=== PATIENT | male | born 1970 | race Caucasian/White ===

== ENCOUNTER 2020-02-14 19:39 | Observation (INO) | payer SELFPAY ==
[2020-02-14] MEDS ORDERED: EPINEPHrine 1 MG/ML SDV ONE (19:43)
[2020-02-14] MEDS ORDERED: diphenhydrAMINE 50 MG/ML SDV ONE (19:44)
[2020-02-14] MEDS ORDERED: Dexamethasone 10 MG/ML SDV ONE (19:45)
[2020-02-14] MEDS ORDERED: Sodium Chloride 0.9% 10 ML Syringe FLUSH PRN (19:46)
[2020-02-14] MEDS ORDERED: Sodium Chloride 0.9% 2.5 ML Syringe FLUSH PRN (19:46)
[2020-02-14] MEDS ORDERED: Dexamethasone 10 MG/ML SDV IVPUSH ONE (19:47)
[2020-02-14] MEDS ORDERED: diphenhydrAMINE 50 MG/ML SDV IVPUSH ONE (19:47)
[2020-02-14] MEDS ORDERED: LORazepam 2 MG/ML SDV IVPUSH ONE (19:57)
--- NOTE | 2020-02-14 20:02 | EDM.PDOC ---
ED HPI GENERAL MEDICAL PROBLEM - General Chief Complaint: Allergic Reaction Stated Complaint: SHORTNESS OF BREATH/VOMITTING BLOOD Time Seen by Provider: 02/14/20 19:46 - History of Present Illness INITIAL COMMENTS - FREE TEXT/NARRATIVE: History of present illness: [] The patient presented in extreme shortness of breath with difficulty speaking and the inhaling. He was using accessory muscles and pulling with a prolonged inspiratory time. There is no actual stridor. There was a very muffled and soft voice he said having an allergic reaction. He has had serious allergy to peanuts and in the past he has had to be intubated. He feels like his throat is closing. He does not know what he was exposed to but he started coughing 2 hours ago. Review of systems: As per history of present illness and below otherwise all systems reviewed and negative. Past medical history: As per history of present illness and as reviewed below otherwise noncontributory. He has significant PTSD. Surgical history: As per history of present illness and as reviewed below otherwise noncontributory. Social history: No reported history of drug or alcohol abuse. Family history: As per history of present illness and as reviewed below otherwise noncontributory. Physical exam: Constitutional - well developed, well-nourished and in acute distress HEENT - normocephalic, no evidence of trauma - external nose and mouth normal - no mass in neck and no JVD - mucosae moist -full soft voice and points to his throat and says it swelling. Soft palate and pharynx are extremely hyperemic and injected. EYES - full EOM, PERRL, no icterus - no evidence of inflammation, injection, or drainage Respiratory - respiratory distress, equal bilateral expansion, lungs diminished to auscultation Cardiovascular - Regular Rhythm with S1 and S2 appreciated and no murmur, gallop or rub. Peripheral pulses symmetrically normal in all four extremities GI - abdomen soft without distension or organomegaly - normal bowel sounds - no guard or rebound Musculoskeletal no gross deformity of long bones or joints - no tenderness, swelling or edema Neurologic - Alert and oriented times four - CN II-XII grossly intact - motor sensory and coordination symmetrically normal Psychiatric - appropriate mood and affect with normal thought content Hematologic - No petechiae or purpura - mucosa appropriate color and sclera not pale - normal nail bed color and refill Integument - no rash or evidence of trauma - normal turgor Diagnostics: [] Patient appears to have anaphylaxis. He is given epinephrine injection and I assembled a team and equipment to prepare to intubate him. We started an IV and gave Benadryl and Decadron. He began to talk. He began to breathe more easily. Therapeutics: The above [] Impression: Anaphylaxis [] Plan: [] Definitive disposition and diagnosis as appropriate pending reevaluation and review of above. - Related Data Allergies Allergy/AdvReac Type Severity Reaction Status Date / Time peanut Allergy Rash Verified 02/14/20 19:59 Home Meds: Home Meds . [No Known Home Meds] 02/14/20 [History] ED ROS ALLERGIC REACTION - Review of Systems Review Of Systems: Comprehensive ROS is negative, except as noted in HPI. ED EXAM GENERAL NO PERIP PULSE - Physical Exam Exam: See Below Text/Narrative:: Physical exam is in my HPI EKG INTERPRETATION EKG Date: 02/14/20 Rhythm: Other (Sinus tachycardia) Rate (Beats/Min): 112 P-Wave: Present QRS: Other (Late transition to R wave in the precordium) ST-T: Normal Comparison: NA - No Prior EKG EKG Interpretation Comments: Impression is no acute injury. 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 Course - Vital Signs Text/Narrative:: 2015 the patient is markedly improved. He is able to talk. He is comfortable. He did not need to be intubated. He does need to be watched in case there is a biphasic response any rebounds after the adrenaline wears off. Patient remembers that he used his EpiPen in a prior attack and therefore he did not have one today. 2034 the patient continues to breathe well. His throat is very sore. He reiterates that he was feeling okay until 2 hours prior to arrival. He started with a cough. Then he began the cough that up some blood. Throat is sore since. But it began to close up just before arrival. To speak well and breathes well now. He is never had a decreased oxygen saturation or low blood pressure. X-ray shows no discrete infiltrate or abnormality. Heart shadow is normal size. 2123 the patient remains stable with a good voice and good air exchange. Discussed with graciously agreed to watch the patient in observation status overnight. Patient placed on a telemetry unit. Total time involved in patient care including review of records, taking history, examining patient, doing charting, consulting physician, and counseling patient that is not billable elsewhere is a procedure 32 minutes critical care time Last Recorded V/S: Last Vital Signs Temp 96.6 F L 02/14/20 19:40 Pulse 118 H 02/14/20 19:40 Resp 25 H 02/14/20 19:40 BP 133/89 02/14/20 19:40 Pulse Ox 96 02/14/20 19:40 - Orders/Labs/Meds Orders: Active Orders 24 hr Category Date Time Status Admission Status [Patient Status] [ADT] Stat ADT 02/14/20 21:22 Ordered EKG Documentation Completion [RC] AM Care 02/14/20 19:46 Active RT Aerosol Therapy [RC] ASDIRECTED Care 02/14/20 20:19 Active Sodium Chloride 0.9% [Normal Saline] 1,000 ml Med 02/14/20 20:45 Active IV ASDIRECTED Sodium Chloride 0.9% [Saline Flush] Med 02/14/20 19:46 Active 10 ml FLUSH ASDIRECTED PRN Sodium Chloride 0.9% [Saline Flush] Med 02/14/20 19:46 Active 2.5 ml FLUSH ASDIRECTED PRN Saline Lock Insert [OM.PC] Stat Oth 02/14/20 19:46 Ordered Medication Orders Sodium Chloride (Normal Saline) 1,000 mls @ 999 mls/hr IV ASDIRECTED GALLITO Last Admin: 02/14/20 20:44 Dose: 999 mls/hr Documented by: KAELA Sodium Chloride (Saline Flush) 10 ml FLUSH ASDIRECTED PRN PRN Reason: Keep Vein Open Sodium Chloride (Saline Flush) 2.5 ml FLUSH ASDIRECTED PRN PRN Reason: Keep Vein Open Labs: Laboratory Tests 02/14/20 02/14/20 Range/Units 19:45 19:45 WBC 7.09 (4.0-11.0) K/uL RBC 5.12 (4.50-5.90) M/uL Hgb 16.8 (13.0-17.0) g/dL Hct 48.1 (38.0-50.0) % MCV 93.9 (80.0-98.0) fL MCH 32.8 H (27.0-32.0) pg MCHC 34.9 (31.0-37.0) g/dL RDW Std Deviation 44.7 (28.0-62.0) fl RDW Coeff of Roman 13 (11.0-15.0) % Plt Count 147 L (150-400) K/uL MPV 10.90 (7.40-12.00) fL Neut % (Auto) 51.5 (48.0-80.0) % Lymph % (Auto) 37.4 (16.0-40.0) % Traill % (Auto) 8.9 (0.0-15.0) % Eos % (Auto) 1.6 (0.0-7.0) % Baso % (Auto) 0.6 (0.0-1.5) % Neut # (Auto) 3.7 (1.4-5.7) K/uL Lymph # (Auto) 2.7 H (0.6-2.4) K/uL Traill # (Auto) 0.6 (0.0-0.8) K/uL Eos # (Auto) 0.1 (0.0-0.7) K/uL Baso # (Auto) 0.0 (0.0-0.1) K/uL Nucleated RBC % 0.0 /100WBC Nucleated RBCs # 0 K/uL Sodium 136 (136-148) mmol/L Potassium 3.8 (3.5-5.1) mmol/L Chloride 95 L (98-107) mmol/L Carbon Dioxide 21.8 (21.0-32.0) mmol/L BUN 8 (7.0-18.0) mg/dL Creatinine 1.0 (0.8-1.3) mg/dL Est Cr Clr Drug Dosing 85.05 mL/min Estimated GFR (MDRD) > 60.0 ml/min Glucose 111 H (74-106) mg/dL Calcium 9.4 (8.5-10.1) mg/dL Total Bilirubin 0.7 (0.2-1.0) mg/dL AST 159 H (15-37) IU/L ALT 267 H (14-63) IU/L Alkaline Phosphatase 66 (46-116) U/L Total Protein 8.3 H (6.4-8.2) g/dL Albumin 4.5 (3.4-5.0) g/dL Globulin 3.8 (2.6-4.0) g/dL Albumin/Globulin Ratio 1.2 (0.9-1.6) Meds: Medications Generic Name Dose Route Start Last Admin Trade Name Kevynq PRN Reason Stop Dose Admin Sodium Chloride 1,000 mls @ 999 mls/hr 02/14/20 20:45 02/14/20 20:44 Normal Saline IV 999 mls/hr ASDIRECTED GALLITO Administration Sodium Chloride 10 ml 02/14/20 19:46 Saline Flush FLUSH ASDIRECTED PRN Keep Vein Open Sodium Chloride 2.5 ml 02/14/20 19:46 Saline Flush FLUSH ASDIRECTED PRN Keep Vein Open Discontinued Medications Generic Name Dose Route Start Last Admin Trade Name Pat PRN Reason Stop Dose Admin Albuterol/Ipratropium Confirm 02/14/20 20:10 02/14/20 20:48 Duoneb 3.0-0.5 Mg/3 Ml Administered 02/14/20 20:11 Not Given Dose 3 ml .ROUTE .STK-MED ONE Albuterol/Ipratropium 3 ml 02/14/20 20:19 02/14/20 20:22 Duoneb 3.0-0.5 Mg/3 Ml NEB 02/14/20 20:20 3 ml ONETIME ONE Administration Benzocaine 2 each 02/14/20 21:11 02/14/20 21:16 Hurricaine One 20% MUCMEM 02/14/20 21:12 2 each ONETIME ONE Administration Benzocaine Confirm 02/14/20 21:12 02/14/20 21:17 Hurricaine One 20% Administered 02/14/20 21:13 Not Given Dose 2 each MUCMEM .STK-MED ONE Benzocaine 1 each 02/14/20 21:16 Hurricaine One 20% MUCMEM 02/14/20 21:17 ONETIME ONE Dexamethasone Confirm 02/14/20 19:45 02/14/20 20:49 Dexamethasone Administered 02/14/20 19:46 Not Given Dose 10 mg .ROUTE .STK-MED ONE Dexamethasone 10 mg 02/14/20 19:47 02/14/20 20:21 Dexamethasone IVPUSH 02/14/20 19:48 10 mg ONETIME ONE Administration Diphenhydramine HCl Confirm 02/14/20 19:44 02/14/20 20:49 Benadryl Administered 02/14/20 19:45 Not Given Dose 50 mg .ROUTE .STK-MED ONE Diphenhydramine HCl 50 mg 02/14/20 19:47 02/14/20 20:21 Benadryl IVPUSH 02/14/20 19:48 50 mg ONETIME ONE Administration Epinephrine HCl Confirm 02/14/20 19:43 02/14/20 20:55 Adrenalin Administered 02/14/20 19:44 Not Given Dose 1 mg .ROUTE .STK-MED ONE Epinephrine HCl 0.3 mg 02/14/20 20:49 02/14/20 20:51 Adrenalin SUBCUT 02/14/20 20:50 0.3 mg ONETIME ONE Administration Famotidine 20 mg 02/14/20 20:19 02/14/20 20:24 Pepcid IVPUSH 02/14/20 20:20 20 mg ONETIME ONE Administration Lorazepam 1 mg 02/14/20 19:57 02/14/20 20:21 Ativan IVPUSH 02/14/20 19:58 1 mg ONETIME ONE Administration Departure - Departure Time of Disposition: 21:24 Disposition: Refer to Observation Clinical Impression: Anaphylaxis - Discharge Information Referrals: PCP,None [Primary Care Provider] - Sepsis Event Note (ED) - Focused Exam Vital Signs: Vital Signs Temp Pulse Resp BP Pulse Ox 02/14/20 19:40 96.6 F L 118 H 25 H 133/89 96 - My Orders Last 24 Hours: My Active Orders 02/14/20 19:46 EKG Documentation Completion [RC] AM Sodium Chloride 0.9% [Saline Flush] 10 ml FLUSH ASDIRECTED PRN Sodium Chloride 0.9% [Saline Flush] 2.5 ml FLUSH ASDIRECTED PRN Saline Lock Insert [OM.PC] Stat 02/14/20 20:19 RT Aerosol Therapy [RC] ASDIRECTED 02/14/20 20:45 Sodium Chloride 0.9% [Normal Saline] 1,000 ml IV ASDIRECTED 02/14/20 21:22 Admission Status [Patient Status] [ADT] Stat - Assessment/Plan Last 24 Hours: My Active Orders 02/14/20 19:46 EKG Documentation Completion [RC] AM Sodium Chloride 0.9% [Saline Flush] 10 ml FLUSH ASDIRECTED PRN Sodium Chloride 0.9% [Saline Flush] 2.5 ml FLUSH ASDIRECTED PRN Saline Lock Insert [OM.PC] Stat 02/14/20 20:19 RT Aerosol Therapy [RC] ASDIRECTED 02/14/20 20:45 Sodium Chloride 0.9% [Normal Saline] 1,000 ml IV ASDIRECTED 02/14/20 21:22 Admission Status [Patient Status] [ADT] Stat
[2020-02-14] MEDS ORDERED: Albuterol/Ipratropium 3.0-0.5 MG/3 ML Neb Soln ONE (20:10)
[2020-02-14] MEDS ORDERED: Albuterol/Ipratropium 3.0-0.5 MG/3 ML Neb Soln NEB ONE (20:19)
[2020-02-14] MEDS ORDERED: Famotidine 20 MG/2 ML SDV IVPUSH ONE (20:19)
[2020-02-14] MEDS ORDERED: Sodium Chloride 0.9% 1,000 ML IV SCH ×2 (20:45→21:45)
[2020-02-14] MEDS ORDERED: EPINEPHrine 1 MG/ML SDV SUBCUT ONE (20:49)
--- NOTE | 2020-02-14 20:50 | CR ---
Chest: Portable view of the chest was obtained. Comparison: No previous chest imaging is available. Heart size and mediastinum are within normal limits for AP technique. Lung markings are slightly increased on the left side. Difficult to exclude mild bronchitis. Lungs otherwise are clear bony structures are grossly intact. Impression: 1. Questionable left-sided mild bronchitis. 2. Nothing acute is otherwise seen on portable chest x-ray. Diagnostic code #3 This report was dictated in MDT
[2020-02-14 20:52] LABS: BLOOD UREA NITROGEN,BUN 8 mg/dL (7.0-18.0); CARBON DIOXIDE,CO2 21.8 mmol/L (21.0-32.0); CHLORIDE,CL 95 mmol/L (98-107); GLUCOSE RANDOM 111 mg/dL (74-106); POTASSIUM,K 3.8 mmol/L (3.5-5.1); SODIUM,NA 136 mmol/L (136-148)
[2020-02-14] MEDS ORDERED: Benzocaine 20% Topical Spray UD MUCMEM ONE ×3 (21:11→21:16)
[2020-02-14] MEDS ORDERED: Albuterol/Ipratropium 3.0-0.5 MG/3 ML Neb Soln NEB PRN (21:52)
[2020-02-14] MEDS ORDERED: diphenhydrAMINE 50 MG/ML SDV IVPUSH PRN (21:57)
--- NOTE | 2020-02-14 22:11 | PCM.HP.2 ---
H&P History of Present Illness - General Date of Service: 02/14/20 Admit Problem/Dx: Admission Diagnosis/Problem Admission Diagnosis/Problem Anaphylaxis - History of Present Illness Initial Comments - Free Text/Narative: Patient with PMH of PTSD presented in extreme shortness of breath with difficulty speaking, cough. Stated that his symptoms started 2 hours ago with severe coughing spell that resulted in some blood tinged sputum. Once he got to the ER his breathing became worse, he was using accessory muscle, no actual stridor was audible but patient had a very muffled and soft voice, felt like his throat was closing. He sttaed he feel like he is having an allergic reaction. He has had serious allergy to peanuts and in the past he has had to be intubated. He had food at a [employer] restaurant and symptoms stated shortly after that. Patients blood work was reassuring. Patients received IV Benadryl, fam otidine and steroids which helped his symptoms snd was admitted to breath better , more comfortably but had sore throat due to violent coughing. Patient was admitted for further care. Throat Pain Score (Numeric/FACES): 8 - Related Data Allergies/Adverse Reactions: Allergies Allergy/AdvReac Type Severity Reaction Status Date / Time peanut Allergy Rash Verified 02/15/20 02:29 Home Medications: Home Meds . [No Known Home Meds] 02/14/20 [History] Past Medical History Cardiovascular History: Reports: None Psychiatric History: Reports: Anxiety, PTSD - Past Surgical History Cardiovascular Surgical History: Reports: Other (See Below) Other Cardiovascular Surgeries/Procedures: cardiac ablation Social & Family History - Family History Family Medical History: Noncontributory - Tobacco Use Smoking Status *Q: Current Every Day Smoker Years of Tobacco use: 25 Packs/Tins Daily: 0.5 - Caffeine Use Caffeine Use: Reports: None - Recreational Drug Use Recreational Drug Use: No H&P Review of Systems - Review of Systems: Review Of Systems: See Below General: Reports: Weakness. Denies: Fever, Chills, Malaise HEENT: Denies: Contact Lenses, Ear Pain, Eye Pain Pulmonary: Reports: Cough. Denies: Shortness of Breath, Wheezing Cardiovascular: Reports: Dyspnea on Exertion. Denies: Chest Pain, Palpitations, Orthopnea, PND Gastrointestinal: Reports: Difficulty Swallowing, Flatus. Denies: Abdominal Pain, Anorexia, Distension, Hematemesis, Hematochezia, Mucous in Stool Genitourinary: Denies: Frequency, Burning, Pain Musculoskeletal: Denies: Shoulder Pain, Arm Pain, Back Pain Exam - Exam Exam: See Below - Vital Signs Vital Signs: Last Vital Signs Temp 35.9 C L 02/14/20 19:40 Pulse 120 H 02/14/20 21:15 Resp 20 02/14/20 21:15 BP 132/94 H 02/14/20 21:15 Pulse Ox 98 02/14/20 21:15 Weight: 68.039 kg - Exam Quality Assessment: Supplemental Oxygen General: Alert, Oriented, Mild Distress (anxious) Neck: Supple, Trachea Midline Lungs: Clear to Auscultation, Normal Respiratory Effort Cardiovascular: Regular Rate, Regular Rhythm, Normal S1, Normal S2 - Patient Data Lab Results Last 24 hrs: Laboratory Results - last 24 hr 02/14/20 02/14/20 02/14/20 Range/Units 19:45 19:45 21:38 WBC 7.09 (4.0-11.0) K/uL RBC 5.12 (4.50-5.90) M/uL Hgb 16.8 (13.0-17.0) g/dL Hct 48.1 (38.0-50.0) % MCV 93.9 (80.0-98.0) fL MCH 32.8 H (27.0-32.0) pg MCHC 34.9 (31.0-37.0) g/dL RDW Std Deviation 44.7 (28.0-62.0) fl RDW Coeff of Roman 13 (11.0-15.0) % Plt Count 147 L (150-400) K/uL MPV 10.90 (7.40-12.00) fL Neut % (Auto) 51.5 (48.0-80.0) % Lymph % (Auto) 37.4 (16.0-40.0) % Williamson % (Auto) 8.9 (0.0-15.0) % Eos % (Auto) 1.6 (0.0-7.0) % Baso % (Auto) 0.6 (0.0-1.5) % Neut # (Auto) 3.7 (1.4-5.7) K/uL Lymph # (Auto) 2.7 H (0.6-2.4) K/uL Williamson # (Auto) 0.6 (0.0-0.8) K/uL Eos # (Auto) 0.1 (0.0-0.7) K/uL Baso # (Auto) 0.0 (0.0-0.1) K/uL Nucleated RBC % 0.0 /100WBC Nucleated RBCs # 0 K/uL Sodium 136 (136-148) mmol/L Potassium 3.8 (3.5-5.1) mmol/L Chloride 95 L (98-107) mmol/L Carbon Dioxide 21.8 (21.0-32.0) mmol/L BUN 8 (7.0-18.0) mg/dL Creatinine 1.0 (0.8-1.3) mg/dL Est Cr Clr Drug Dosing 85.05 mL/min Estimated GFR (MDRD) > 60.0 ml/min Glucose 111 H (74-106) mg/dL Calcium 9.4 (8.5-10.1) mg/dL Total Bilirubin 0.7 (0.2-1.0) mg/dL AST 159 H (15-37) IU/L ALT 267 H (14-63) IU/L Alkaline Phosphatase 66 (46-116) U/L Total Protein 8.3 H (6.4-8.2) g/dL Albumin 4.5 (3.4-5.0) g/dL Globulin 3.8 (2.6-4.0) g/dL Albumin/Globulin Ratio 1.2 (0.9-1.6) COVID-19 (ARSEN) NEGATIVE (NEGATIVE) Result Diagrams: 02/15/20 06:20 02/15/20 06:20 Sepsis Event Note - Evaluation Sepsis Screening Result: No Definite Risk - Focused Exam Vital Signs: Vital Signs Temp Pulse Resp BP Pulse Ox 02/14/20 21:15 120 H 20 132/94 H 98 02/14/20 20:45 118 H 20 133/85 98 02/14/20 20:15 104 H 22 H 131/90 100 02/14/20 19:40 35.9 C L 118 H 25 H 133/89 96 Date Exam was Performed: 02/15/20 Time Exam was Performed: 07:53 - Problem List (1) PTSD (post-traumatic stress disorder) SNOMED Code(s): 78935074 ICD Code: F43.10 - POST-TRAUMATIC STRESS DISORDER, UNSPECIFIED Status: Acute Current Visit: Yes (2) Anxiety SNOMED Code(s): 59849858 ICD Code: F41.9 - ANXIETY DISORDER, UNSPECIFIED Status: Acute Current Visit: Yes (3) Anaphylaxis SNOMED Code(s): 57445549 ICD Code: T78.2XXA - ANAPHYLACTIC SHOCK, UNSPECIFIED, INITIAL ENCOUNTER Status: Acute Current Visit: Yes Problem List Initiated/Reviewed/Updated: Yes Orders Last 24hrs: Active Orders 24 hr Category Date Time Status Admission Status [Patient Status] [ADT] Stat ADT 02/14/20 21:22 Active Ambulate [RC] ASDIRECTED Care 02/14/20 21:52 Active Antiembolic Devices [RC] PER UNIT ROUTINE Care 02/14/20 21:57 Active EKG Documentation Completion [RC] AM Care 02/14/20 19:46 Active Oxygen Therapy [RC] PRN Care 02/14/20 21:52 Active Pulse Oximetry [RC] PRN Care 02/14/20 21:54 Active RT Aerosol Therapy [RC] ASDIRECTED Care 02/14/20 20:19 Active RT Aerosol Therapy [RC] ASDIRECTED Care 02/14/20 21:57 Active VTE/DVT Education [RC] PER UNIT ROUTINE Care 02/14/20 21:52 Active Vital Signs [RC] Q4H Care 02/14/20 21:52 Active Full Liquid Diet [DIET] Diet 02/14/20 Dinner Active Albuterol/Ipratropium [DuoNeb 3.0-0.5 MG/3 ML] Med 02/14/20 21:52 Active 3 ml NEB Q4HRRT PRN Lactated Ringers [Ringers, Lactated] 1,000 ml Med 02/14/20 22:00 Active IV ASDIRECTED Sodium Chloride 0.9% [Normal Saline] 1,000 ml Med 02/14/20 20:45 Active IV ASDIRECTED Sodium Chloride 0.9% [Normal Saline] 1,000 ml Med 02/14/20 21:45 Active IV ASDIRECTED Sodium Chloride 0.9% [Saline Flush] Med 02/14/20 19:46 Active 10 ml FLUSH ASDIRECTED PRN Sodium Chloride 0.9% [Saline Flush] Med 02/14/20 19:46 Active 2.5 ml FLUSH ASDIRECTED PRN diphenhydrAMINE [Benadryl] Med 02/14/20 21:57 Active 25 mg IVPUSH Q6H PRN methylPREDNISolone Sod Succ [Solu-MEDROL] Med 02/14/20 22:15 Active 40 mg IVPUSH Q12H Saline Lock Insert [OM.PC] Stat Oth 02/14/20 19:46 Ordered Sequential Compression Device [OM.PC] Per Unit Routine Oth 02/14/20 21:54 Ordered Resuscitation Status Routine Resus Stat 02/14/20 21:52 Ordered Medication Orders Albuterol/Ipratropium (Duoneb 3.0-0.5 Mg/3 Ml) 3 ml NEB Q4HRRT PRN PRN Reason: Shortness Of Breath/wheezing Diphenhydramine HCl (Benadryl) 25 mg IVPUSH Q6H PRN PRN Reason: Hives Sodium Chloride (Normal Saline) 1,000 mls @ 999 mls/hr IV ASDIRECTED [facility] Last Admin: 02/14/20 20:44 Dose: 999 mls/hr Documented by: ARANANG Sodium Chloride (Normal Saline) 1,000 mls @ 999 mls/hr IV ASDIRECTED [facility] Lactated Ringer's (Ringers, Lactated) 1,000 mls @ 125 mls/hr IV ASDIRECTED GALLITO Methylprednisolone Sodium Succinate (Solu-Medrol) 40 mg IVPUSH Q12H GALLITO Sodium Chloride (Saline Flush) 10 ml FLUSH ASDIRECTED PRN PRN Reason: Keep Vein Open Sodium Chloride (Saline Flush) 2.5 ml FLUSH ASDIRECTED PRN PRN Reason: Keep Vein Open Assessment/Plan Comment:: 49 y/o M admitted for possible anaphylaxis reaction Will admit to observation overnight cont telemetry oxygen via NC to maintain pulse oxy >92 IV fluids for hydration IV steroids IV Benadryl as needed Toradol for pain Abnormal Lfts, recheck in AM
[2020-02-14] MEDS ORDERED: Ketorolac 30 MG/ML SDV IVPUSH ONE (23:08)
[2020-02-14] MEDS ORDERED: Ketorolac 15 MG/ML SDV IVPUSH PRN (23:09)
[2020-02-14] MEDS: methylPREDNISolone Sodium Succinate 40 MG/1 ML SDV IVPUSH SCH (23:12)
[2020-02-14] MEDS: Lactated Ringers 1,000 ML IV SCH (23:18)
[2020-02-14] MEDS ORDERED: LORazepam 2 MG/ML SDV IVPUSH PRN (23:19)
[2020-02-14] MEDS ORDERED: Benzocaine/Cetylpyridinium/Menthol Lozenge MUCMEM PRN (23:40)
[2020-02-14] MEDS ORDERED: Diphenhydramine/Lidocaine/Nystatin Suspension 237 ML Bottle PO PRN (23:55)
[2020-02-15 07:22] LABS: BLOOD UREA NITROGEN,BUN 9 mg/dL (7.0-18.0); CARBON DIOXIDE,CO2 25.4 mmol/L (21.0-32.0); CHLORIDE,CL 98 mmol/L (98-107); GLUCOSE RANDOM 126 mg/dL (74-106); POTASSIUM,K 4.7 mmol/L (3.5-5.1); SODIUM,NA 136 mmol/L (136-148)
[2020-02-15] MEDS: Lactated Ringers 1,000 ML IV SCH (07:28)
[2020-02-15 08:15] LABS: BILIRUBIN INDIRECT 0.5
[2020-02-15] MEDS: methylPREDNISolone Sodium Succinate 40 MG/1 ML SDV IVPUSH SCH (11:18)
--- NOTE | 2020-02-15 11:19 | PCM.DCSUM1 ---
Discharge Summary - Hospital Course Free Text/Narrative:: Patient with PMH of PTSD presented in extreme shortness of breath with difficulty speaking, cough. Stated that his symptoms started 2 hours ago with severe coughing spell that resulted in some blood tinged sputum. Once he got to the ER his breathing became worse, he was using accessory muscle, no actual stridor was audible but patient had a very muffled and soft voice, felt like his throat was closing. He sttaed he feel like he is having an allergic reaction. He has had serious allergy to peanuts and in the past he has had to be intubated. He had food at a [employer] restaurant and symptoms stated shortly after that. Patients blood work was reassuring. Patients received IV Benadryl, famotidine and steroids which helped his symptoms snd was admitted to breath better , more comfortably but had sore throat due to violent coughing. Patient was admitted for further care. He received IV Solumol, IV Toradol for pain. He was stable overnight with no rebound anaphylaxis. He was told to refill his epi pen and to declare his allergies before ordering food next time. He is medically stable for dc and recommended to fu with PCP and psychiatry ( for his chronic PTSD) upon dc. - Discharge Data Discharge Date: 02/15/20 Discharge Disposition: Home, Self-Care 01 Condition: Fair - Referral to Home Health Primary Care Physician: PCP None - Discharge Diagnosis/Problem(s) (1) PTSD (post-traumatic stress disorder) SNOMED Code(s): 03928373 ICD Code: F43.10 - POST-TRAUMATIC STRESS DISORDER, UNSPECIFIED Status: Acute Current Visit: Yes (2) Anxiety SNOMED Code(s): 58190932 ICD Code: F41.9 - ANXIETY DISORDER, UNSPECIFIED Status: Acute Current Visit: Yes (3) Anaphylaxis SNOMED Code(s): 83654832 ICD Code: T78.2XXA - ANAPHYLACTIC SHOCK, UNSPECIFIED, INITIAL ENCOUNTER Status: Acute Current Visit: Yes - Patient Instructions Diet: Usual Diet as Tolerated Driving: May Drive Today Showering/Bathing: May Shower Notify Provider of: Fever, Increased Pain, Swelling and Redness, Drainage, Nausea and/or Vomiting - Discharge Plan *PRESCRIPTION DRUG MONITORING PROGRAM REVIEWED*: No *COPY OF PRESCRIPTION DRUG MONITORING REPORT IN PATIENT GABY: No Prescriptions/Med Rec: Diphenhyd/Lidocaine/Nystatin [Magic Mouthwash] 30 ml PO Q6H PRN #6 bottle PRN Reason: Other predniSONE [Prednisone] 10 mg PO DAILY #5 tab.ds.pk Acetaminophen [Tylenol] 325 mg PO Q8H #20 capsule Home Medications: Home Meds Acetaminophen [Tylenol] 325 mg PO Q8H #20 capsule 02/15/20 [Rx] Diphenhyd/Lidocaine/Nystatin [Magic Mouthwash] 30 ml PO Q6H PRN #6 bottle 02/15/20 [Rx] predniSONE [Prednisone] 10 mg PO DAILY #5 tab.ds.pk 02/15/20 [Rx] Patient Handouts: Lidocaine oral solution, Diphenhydramine Oral Suspension, Acetaminophen tablets or caplets, Nystatin oral suspension, Prednisone tablets Referrals: [facility] [Ordering Only Provider] - () - Discharge Summary/Plan Comment DC Time >30 min.: No - Patient Data Vitals - Most Recent: Last Vital Signs Temp 36.9 C 02/15/20 07:38 Pulse 93 02/15/20 07:38 Resp 20 02/15/20 07:38 BP 164/96 H 02/15/20 08:21 Pulse Ox 96 02/15/20 08:36 Weight - Most Recent: 68.039 kg I&O - Last 24 hours: Intake & Output 02/14/20 02/15/20 02/15/20 22:59 06:59 14:59 Intake Total 706 Balance 706 Lab Results - Last 24 hrs: Laboratory Results - last 24 hr 02/14/20 02/14/20 02/14/20 Range/Units 19:45 19:45 21:38 WBC 7.09 (4.0-11.0) K/uL RBC 5.12 (4.50-5.90) M/uL Hgb 16.8 (13.0-17.0) g/dL Hct 48.1 (38.0-50.0) % MCV 93.9 (80.0-98.0) fL MCH 32.8 H (27.0-32.0) pg MCHC 34.9 (31.0-37.0) g/dL RDW Std Deviation 44.7 (28.0-62.0) fl RDW Coeff of Roman 13 (11.0-15.0) % Plt Count 147 L (150-400) K/uL MPV 10.90 (7.40-12.00) fL Neut % (Auto) 51.5 (48.0-80.0) % Lymph % (Auto) 37.4 (16.0-40.0) % [place] % (Auto) 8.9 (0.0-15.0) % Eos % (Auto) 1.6 (0.0-7.0) % Baso % (Auto) 0.6 (0.0-1.5) % Neut # (Auto) 3.7 (1.4-5.7) K/uL Lymph # (Auto) 2.7 H (0.6-2.4) K/uL [place] # (Auto) 0.6 (0.0-0.8) K/uL Eos # (Auto) 0.1 (0.0-0.7) K/uL Baso # (Auto) 0.0 (0.0-0.1) K/uL Nucleated RBC % 0.0 /100WBC Nucleated RBCs # 0 K/uL Sodium 136 (136-148) mmol/L Potassium 3.8 (3.5-5.1) mmol/L Chloride 95 L (98-107) mmol/L Carbon Dioxide 21.8 (21.0-32.0) mmol/L BUN 8 (7.0-18.0) mg/dL Creatinine 1.0 (0.8-1.3) mg/dL Est Cr Clr Drug Dosing 85.05 mL/min Estimated GFR (MDRD) > 60.0 ml/min Glucose 111 H (74-106) mg/dL Calcium 9.4 (8.5-10.1) mg/dL Phosphorus (2.6-4.7) mg/dL Magnesium (1.8-2.4) mg/dL Total Bilirubin 0.7 (0.2-1.0) mg/dL Direct Bilirubin (0.0-0.5) mg/dL Indirect Bilirubin AST 159 H (15-37) IU/L ALT 267 H (14-63) IU/L Alkaline Phosphatase 66 (46-116) U/L Total Protein 8.3 H (6.4-8.2) g/dL Albumin 4.5 (3.4-5.0) g/dL Globulin 3.8 (2.6-4.0) g/dL Albumin/Globulin Ratio 1.2 (0.9-1.6) COVID-19 ([facility]) NEGATIVE (NEGATIVE) 02/15/20 02/15/20 02/15/20 Range/Units 04:22 06:20 06:20 WBC 3.59 L (4.0-11.0) K/uL RBC 4.27 L (4.50-5.90) M/uL Hgb 13.3 (13.0-17.0) g/dL Hct 40.9 (38.0-50.0) % MCV 95.8 (80.0-98.0) fL MCH 31.1 (27.0-32.0) pg MCHC 32.5 (31.0-37.0) g/dL RDW Std Deviation 45.5 (28.0-62.0) fl RDW Coeff of Roman 13 (11.0-15.0) % Plt Count 104 L (150-400) K/uL MPV 10.80 (7.40-12.00) fL Neut % (Auto) 90.8 H (48.0-80.0) % Lymph % (Auto) 8.6 L (16.0-40.0) % [place] % (Auto) 0.6 (0.0-15.0) % Eos % (Auto) 0.0 (0.0-7.0) % Baso % (Auto) 0.0 (0.0-1.5) % Neut # (Auto) 3.3 (1.4-5.7) K/uL Lymph # (Auto) 0.3 L (0.6-2.4) K/uL [place] # (Auto) 0.0 (0.0-0.8) K/uL Eos # (Auto) 0.0 (0.0-0.7) K/uL Baso # (Auto) 0.0 (0.0-0.1) K/uL Nucleated RBC % 0.0 /100WBC Nucleated RBCs # 0 K/uL Sodium 136 (136-148) mmol/L Potassium 4.7 (3.5-5.1) mmol/L Chloride 98 (98-107) mmol/L Carbon Dioxide 25.4 (21.0-32.0) mmol/L BUN 9 (7.0-18.0) mg/dL Creatinine 0.9 (0.8-1.3) mg/dL Est Cr Clr Drug Dosing 90.00 mL/min Estimated GFR (MDRD) > 60.0 ml/min Glucose 126 H (74-106) mg/dL Calcium 8.7 (8.5-10.1) mg/dL Phosphorus 5.7 H (2.6-4.7) mg/dL Magnesium 2.0 (1.8-2.4) mg/dL Total Bilirubin 0.7 (0.2-1.0) mg/dL Direct Bilirubin 0.20 (0.0-0.5) mg/dL Indirect Bilirubin 0.50 AST 98 H (15-37) IU/L ALT 204 H (14-63) IU/L Alkaline Phosphatase 55 (46-116) U/L Total Protein 6.9 (6.4-8.2) g/dL Albumin 3.6 (3.4-5.0) g/dL Globulin 3.3 (2.6-4.0) g/dL Albumin/Globulin Ratio 1.1 (0.9-1.6) COVID-19 ([facility]) (NEGATIVE) Med Orders - Current: Current Medications Albuterol/Ipratropium (Duoneb 3.0-0.5 Mg/3 Ml) 3 ml NEB Q4HRRT PRN PRN Reason: Shortness Of Breath/wheezing Benzocaine/Menthol (Cepacol Sore Throat) 1 lozenge MUCMEM Q4HR PRN PRN Reason: Sore Throat Last Admin: 02/15/20 01:01 Dose: 1 lozenge Documented by: Diphenhydramine HCl (Benadryl) 25 mg IVPUSH Q6H PRN PRN Reason: Hives Diphenhydramine/Nystatin/Lidocaine (Magic Mouthwash) 30 ml PO Q4H PRN PRN Reason: Other Sodium Chloride (Normal Saline) 1,000 mls @ 999 mls/hr IV ASDIRECTED [facility] Last Admin: 02/14/20 20:44 Dose: 999 mls/hr Documented by: Sodium Chloride (Normal Saline) 1,000 mls @ 999 mls/hr IV ASDIRECTED [facility] Last Admin: 02/14/20 22:14 Dose: 999 mls/hr Documented by: Lactated Ringer's (Ringers, Lactated) 1,000 mls @ 125 mls/hr IV ASDIRECTED [facility] Last Admin: 02/15/20 07:28 Dose: 125 mls/hr Documented by: Ketorolac Tromethamine (Toradol) 15 mg IVPUSH Q6H PRN PRN Reason: Pain Stop: 02/19/20 23:10 Lorazepam (Ativan) 1 mg IVPUSH Q4H PRN PRN Reason: Anxiety Methylprednisolone Sodium Succinate (Solu-Medrol) 40 mg IVPUSH Q12H [facility] Last Admin: 02/15/20 11:18 Dose: 40 mg Documented by: Sodium Chloride (Saline Flush) 10 ml FLUSH ASDIRECTED PRN PRN Reason: Keep Vein Open Sodium Chloride (Saline Flush) 2.5 ml FLUSH ASDIRECTED PRN PRN Reason: Keep Vein Open Discontinued Medications Albuterol/Ipratropium (Duoneb 3.0-0.5 Mg/3 Ml) Confirm Administered Dose 3 ml .ROUTE .STK-MED ONE Stop: 02/14/20 20:11 Last Admin: 02/14/20 20:48 Dose: Not Given Documented by: Albuterol/Ipratropium (Duoneb 3.0-0.5 Mg/3 Ml) 3 ml NEB ONETIME ONE Stop: 02/14/20 20:20 Last Admin: 02/14/20 20:22 Dose: 3 ml Documented by: Benzocaine (Hurricaine One 20%) 2 each MUCMEM ONETIME ONE Stop: 02/14/20 21:12 Last Admin: 02/14/20 21:16 Dose: 2 each Documented by: Benzocaine (Hurricaine One 20%) Confirm Administered Dose 2 each MUCMEM .STK-MED ONE Stop: 02/14/20 21:13 Last Admin: 02/14/20 21:17 Dose: Not Given Documented by: Benzocaine (Hurricaine One 20%) 1 each MUCMEM ONETIME ONE Stop: 02/14/20 21:17 Last Admin: 02/14/20 22:19 Dose: Not Given Documented by: Dexamethasone (Dexamethasone) Confirm Administered Dose 10 mg .ROUTE .STK-MED ONE Stop: 02/14/20 19:46 Last Admin: 02/14/20 20:49 Dose: Not Given Documented by: Dexamethasone (Dexamethasone) 10 mg IVPUSH ONETIME ONE Stop: 02/14/20 19:48 Last Admin: 02/14/20 20:21 Dose: 10 mg Documented by: Diphenhydramine HCl (Benadryl) Confirm Administered Dose 50 mg .ROUTE .STK-MED ONE Stop: 02/14/20 19:45 Last Admin: 02/14/20 20:49 Dose: Not Given Documented by: Diphenhydramine HCl (Benadryl) 50 mg IVPUSH ONETIME ONE Stop: 02/14/20 19:48 Last Admin: 02/14/20 20:21 Dose: 50 mg Documented by: Epinephrine HCl (Adrenalin) Confirm Administered Dose 1 mg .ROUTE .STK-MED ONE Stop: 02/14/20 19:44 Last Admin: 02/14/20 20:55 Dose: Not Given Documented by: Epinephrine HCl (Adrenalin) 0.3 mg SUBCUT ONETIME ONE Stop: 02/14/20 20:50 Last Admin: 02/14/20 20:51 Dose: 0.3 mg Documented by: Famotidine (Pepcid) 20 mg IVPUSH ONETIME ONE Stop: 02/14/20 20:20 Last Admin: 02/14/20 20:24 Dose: 20 mg Documented by: Ketorolac Tromethamine (Toradol) 30 mg IVPUSH NOW ONE Stop: 02/14/20 23:09 Last Admin: 02/14/20 23:27 Dose: 30 mg Documented by: Lorazepam (Ativan) 1 mg IVPUSH ONETIME ONE Stop: 02/14/20 19:58 Last Admin: 02/14/20 20:21 Dose: 1 mg Documented by:
== END 2020-02-15 12:10 | disposition home or self-care (01) ==
LOC: MW.ED 19:39 → MW.MS 21:22 → UNDOADMOB 21:22
PROVIDERS: ADMIT Student in an Organized Health Care Education/Training Program; ATTEND Student in an Organized Health Care Education/Training Program
DX: T78.2XXA Anaphylactic shock, unspecified, initial encounter (principal); F17.210 Nicotine dependence, cigarettes, uncomplicated; F41.9 Anxiety disorder, unspecified; F43.10 Post-traumatic stress disorder, unspecified; Z20.828 Contact with and (suspected) exposure to other viral communicable diseases; Z91.010 Allergy to peanuts; Z79.899 Other long term (current) drug therapy
CPT/HCPCS: 36415; 71045; 80048; 80053; 80076; 83735; 84100; 85025; 87635; 93005; 96361; 96372; 96374; 96375; 99285; A9270; G0378; J0171; J1100; J1200; J1885; J2060; J2920; J3490; J7030; J7120; 99291; J7620-GY; U0002

== ENCOUNTER 2021-11-15 20:52 | Emergency (ER) | payer SELFPAY ==
[2021-11-15] MEDS ORDERED: Albuterol/Ipratropium 3.0-0.5 MG/3 ML Neb Soln ONE (21:01)
[2021-11-15] MEDS ORDERED: Albuterol/Ipratropium 3.0-0.5 MG/3 ML Neb Soln NEB ONE ×2 (21:04)
[2021-11-15] MEDS ORDERED: methylPREDNISolone Sodium Succinate 40 MG/1 ML SDV IVPUSH ONE (21:04)
[2021-11-15] MEDS ORDERED: Acetaminophen 500 MG Tab PO ONE (21:21)
[2021-11-15] MEDS ORDERED: Azithromycin 250 MG Tab PO STA (22:01)
== END 2021-11-15 22:15 | disposition home or self-care (01) ==
LOC: MW.ED 20:52
DX: J44.1 Chronic obstructive pulmonary disease with (acute) exacerbation (principal); Z91.010 Allergy to peanuts; Z79.899 Other long term (current) drug therapy
CPT/HCPCS: 71045; 93005; 96374; 99284; A9270; J2920; J7620-GY

== ENCOUNTER 2021-12-24 23:29 | Emergency (ER) | payer SELFPAY ==
[2021-12-24] MEDS ORDERED: Albuterol/Ipratropium 3.0-0.5 MG/3 ML Neb Soln NEB ONE (23:34)
[2021-12-24] MEDS ORDERED: Sodium Chloride 0.9% 2.5 ML Syringe FLUSH PRN (23:34)
[2021-12-24] MEDS ORDERED: Sodium Chloride 0.9% 10 ML Syringe FLUSH PRN (23:34)
[2021-12-24] MEDS ORDERED: methylPREDNISolone Sodium Succinate 125 MG/2 ML SDV IVPUSH ONE (23:34)
[2021-12-24] MEDS ORDERED: Albuterol/Ipratropium 3.0-0.5 MG/3 ML Neb Soln ONE (23:35)
[2021-12-25 00:33] LABS: BLOOD UREA NITROGEN,BUN 7 mg/dL (7.0-18.0); CARBON DIOXIDE,CO2 19.8 mmol/L (21.0-32.0); GLUCOSE RANDOM 121 mg/dL (74-106)
[2021-12-25 00:55] LABS: CHLORIDE,CL 106 mmol/L (98-107); POTASSIUM,K 3.5 mmol/L (3.5-5.1); SODIUM,NA 140 mmol/L (136-148)
[2021-12-25] MEDS ORDERED: Codeine/Promethazine 10-6.25 MG/5 ML Syrup 5 ML UD Syringe PO STA (00:59)
[2021-12-25] MEDS ORDERED: Azithromycin 250 MG Tab PO ONE (01:00)
[2021-12-25] MEDS ORDERED: predniSONE 10 MG Tab PO ONE (01:00)
== END 2021-12-25 01:41 | disposition home or self-care (01) ==
LOC: MW.ED 23:29
DX: J44.1 Chronic obstructive pulmonary disease with (acute) exacerbation (principal); J12.9 Viral pneumonia, unspecified; Z79.899 Other long term (current) drug therapy; Z91.010 Allergy to peanuts
CPT/HCPCS: 36415; 71045; 80053; 83880; 84484; 85025; 93005; 96374; 99285; A9270; J2930; J3490; 93010; 99284; J7620-GY

== ENCOUNTER 2022-06-05 20:27 | Emergency (ER) | payer MEDICAID ==
[2022-06-05] MEDS ORDERED: Albuterol/Ipratropium 3.0-0.5 MG/3 ML Neb Soln ONE (20:34)
[2022-06-05] MEDS ORDERED: methylPREDNISolone Sodium Succinate 125 MG/2 ML SDV IVPUSH ONE (20:34)
[2022-06-05] MEDS ORDERED: Sodium Chloride 0.9% 1,000 ML IV ONE (20:34)
[2022-06-05] MEDS ORDERED: Albuterol/Ipratropium 3.0-0.5 MG/3 ML Neb Soln NEB ONE (20:37)
[2022-06-05 21:24] LABS: BLOOD UREA NITROGEN,BUN 4 mg/dL (7.0-18.0); CARBON DIOXIDE,CO2 24.3 mmol/L (21.0-32.0); CHLORIDE,CL 100 mmol/L (98-107); ESTIMATED GFR 111 mL/min (>60); GLUCOSE RANDOM 102 mg/dL (74-106); POTASSIUM,K 3.7 mmol/L (3.5-5.1); SODIUM,NA 138 mmol/L (136-148)
[2022-06-05] MEDS ORDERED: Ondansetron 4 MG/2 ML SDV IVPUSH ONE (21:55)
[2022-06-05 22:00] LABS: CORONAVIRUS COVID-19 NAA NEGATIVE (NEGATIVE); INFLUENZA A NAA NEGATIVE (NEGATIVE); INFLUENZA B NAA NEGATIVE (NEGATIVE)
[2022-06-05] MEDS ORDERED: Iopamidol 755 MG/ML 500 ML Multipack Bottle IVPUSH STA (22:00)
== END 2022-06-05 22:54 | disposition home or self-care (01) ==
LOC: MW.ED 20:27
DX: J44.1 Chronic obstructive pulmonary disease with (acute) exacerbation (principal); Z91.010 Allergy to peanuts; Z85.118 Personal history of other malignant neoplasm of bronchus and lung; Z20.822 Contact with and (suspected) exposure to COVID-19
CPT/HCPCS: 0240U; 36415; 71045; 71275; 80053; 84484; 85025; 85610; 85730; 96361; 96374; 96375; 99285; J2405; J2930; J7030; Q9967; J7620-GY

== ENCOUNTER 2022-06-09 14:29 | Emergency (ER) | payer MEDICAID ==
[2022-06-09 15:38] LABS: POTASSIUM,K 3.7 mmol/L (3.5-5.1)
[2022-06-09 15:44] LABS: CORONAVIRUS COVID-19 NAA NEGATIVE (NEGATIVE); INFLUENZA A NAA NEGATIVE (NEGATIVE); INFLUENZA B NAA NEGATIVE (NEGATIVE)
== END 2022-06-09 15:59 | disposition left against medical advice (07) ==
LOC: MW.ED 14:29
DX: F10.129 Alcohol abuse with intoxication, unspecified (principal); J44.1 Chronic obstructive pulmonary disease with (acute) exacerbation; Z91.010 Allergy to peanuts; Z20.822 Contact with and (suspected) exposure to COVID-19
CPT/HCPCS: 0240U; 36415; 70450; 71045; 80053; 80307; 84484; 85025; 93005; 99285